=== PATIENT | female | born 1945 | race Caucasian/White ===

== ENCOUNTER 2016-07-25 10:21 | Inpatient (IN) | payer OTHER, MEDICARE ==
[2016-07-25] VITALS (18 sets, daily range): BP systolic 74–204; BP diastolic 50–95; PULSE 74–123; RESP 14–24; TEMP 97.2–99.3; O2SAT 96–100
[~2016-07-25] VITALS: Ht 162.6 cm; Wt 58.0 kg
[~2016-07-25 10:21] MED LIST: ALPR0.25 PO; ASPI81 PO; BENA20TA PO; CALC-187 PO; CHOL1CAP6 PO; CITRTAB8 PO; D32000CA PO; HYDR-3580 PO; HYDR12.56 PO; HYDR25 PO; LEVO25TA36 PO; METO25 PO; OMEG120017 PO; OXYC5 PO; RANI150T PO; SERT-129 PO; SIMV40TA PO; TIZA4 PO; WAL-10TA2 PO
[2016-07-25] MEDS ORDERED: SODIUM CHLOR 0.9% 1000 ML INJ 1,000 ML IV ONE (10:30)
[2016-07-25 10:48] LABS: AUTOMATED NEUTROPHIL # 7.7 TH/MM3 (1.8-7.7); BASOPHIL # 0.1 TH/MM3 (0-0.2); BASOPHIL % 0.5 % (0.0-2.0); EOSINOPHIL # 0.2 TH/MM3 (0-0.4); EOSINOPHIL % 1.6 % (0.0-4.0); HEMATOCRIT 45.9 % (35.0-46.0); HEMO FLAGS DIFF FINAL; LYMPH % 34.2 % (9.0-44.0); LYMPHOCYTE # 4.5 TH/MM3 (1.0-4.8); MEAN CELL VOLUME 95.7 FL (80.0-100.0); MEAN CORPUSCULAR HEMOGLOBIN 32.2 PG (27.0-34.0); MEAN CORPUSCULAR HGB CONC 33.6 % (32.0-36.0); MONO % 5.9 % (0.0-8.0); NEUT % 57.8 % (16.0-70.0); PLATELET COUNT 365 TH/MM3 (150-450); RED CELL DISTRIBUTION WIDTH 13.1 % (11.6-17.2); WHITE BLOOD COUNT 13.3 TH/MM3 (4.0-11.0)
--- NOTE | 2016-07-25 10:50 | PD ---
HPI Chief Complaint: unresponsive, intubated Time Seen by Provider: 10:25 Travel History International Travel<30 days: No Contact w/Intl Traveler<30days: No Traveled to known affect area: No History of Present Illness HPI 71-year-old female came to the emergency room with history of unresponsiveness. called EMS and when they arrived she had a GCS of 3 and they decided to intubate her. As per the telling the EMS about the history patient was fine up until 9 AM this morning. She called him to help her go to the bathroom because she felt her left side go weak. As he assisted her to the bathroom her speech quite garbled. She complained of headache and then she collapsed. EMS after arrival decided to intubate her given her GCS. They also noticed that she had vomited just prior to their arrival. They wanted to protect her airway. Initial blood pressure was more than 200 systolic. Patient obviously was in no condition to give any history. There was no family member present when patient arrived. A stroke alert was called based on EMS. When patient arrived her blood pressure was 155 systolic. Blood sugar was 149. PFSH Past Medical History Narrative Medical List of her past medical, surgical, social and family history was reviewed from the nursing note. Anxiety: Yes Depression: Yes Cardiovascular Problems: Yes (WAS TOLD SHE HAD MITRAL VALVE PROLAPSE BUT STATES THAT CARDIOLOGY SAYS NO.) High Cholesterol: Yes Cerebrovascular Accident: Yes (TIA X 3) Diminished Hearing: No Hypertension: Yes Past Surgical History Abdominal Surgery: Yes (LT INGUINAL HERNIA) Appendectomy: Yes Gynecologic Surgery: Yes (POLYPS RT BREAST X3) Hysterectomy: Yes Other Surgery: Yes (3-BENIGN R BREAST TUMORS REMOVED) Social History Alcohol Use: No Tobacco Use: No Substance Use: No Allergies-Medications (Allergen,Severity, Reaction): Coded Allergies: Adhesives (Verified Allergy, Severe, RASH, 11/17/14) Codeine (Verified Allergy, Severe, ITCHING, 11/17/14) Penicillin (Verified Allergy, Severe, HIVES, 11/17/14) Comments List of her allergies reviewed from the nursing note. Reported Meds & Prescriptions Reported Meds & Active Scripts Active Reported Cholestyramine 4 Gm/Dose Powd 4-8 Gm PO DAILY 1 level scoopful of powder contains 4 grams of cholestyramine. Alprazolam 0.25 Mg Tab 0.25-0.5 Mg PO HS PRN Alprazolam 0.25 Mg Tab 0.25 Mg PO DAILY Levocetirizine 5 Mg Tab 5 Mg PO HS Sertraline (Sertraline HCl) 100 Mg Tab 150 Mg PO DAILY Simvastatin 40 Mg Tab 40 Mg PO HS Vitamin D3 (Cholecalciferol) 5,000 Unit Tab 5,000 Units PO DAILY Zantac (Ranitidine HCl) 150 Mg Tab 150 Mg PO DAILY Citracal + D3 Maximum (Calcium Citrate-Vitamin D) 315-250 Mg-Unit Tab 1 Tab PO DAILY Benazepril (Benazepril HCl) 40 Mg Tab 40 Mg PO DAILY Aspirin Adult Low Strength (Aspirin) 81 Mg Tabdr 81 Mg PO HS Metoprolol Succinate ER 24 HR (Metoprolol Succinate) 50 Mg Tab 50 Mg PO DAILY Tizanidine (Tizanidine HCl) 4 Mg Cap 4 Mg PO BID Narrative Medication List of her home medications reviewed from the nursing note. Review of Systems Except as stated in HPI: all other systems reviewed are Neg Physical Exam Narrative GENERAL: Unresponsive, intubated SKIN: Warm and dry. HEAD: Atraumatic. Normocephalic. EYES: Pupils equal and round, 3 mm and unreactive to light. No scleral icterus. No injection or drainage. ENT: No nasal bleeding or discharge. Mucous membranes pink and moist. NECK: Trachea midline. No JVD. ET tube CARDIOVASCULAR: Regular rate and rhythm. No murmur appreciated. RESPIRATORY: No accessory muscle use. Clear to auscultation. Decreased breath sound on the left side. GASTROINTESTINAL: Abdomen soft, non-tender, nondistended. Hepatic and splenic margins not palpable. MUSCULOSKELETAL: No obvious deformities. No clubbing. No cyanosis. No edema. NEUROLOGICAL: GCS of 3, intubated PSYCHIATRIC: Unable to assess Data Data Last Documented VS Orders Ct Brain W/O Iv Contrast(Rout) (07/25/16 10:28) Diet Npo (07/25/16 Lunch) Activity Bed Rest (07/25/16 ) Electrocardiogram (07/25/16 ) I-Stat Creatinine (07/25/16 10:30) I-Stat Profile (07/25/16 10:30) Prothrombin Time / Inr (Pt) (07/25/16 10:30) Act Partial Throm Time (Ptt) (07/25/16 10:30) Complete Blood Count With Diff (07/25/16 10:30) Fibrinogen (07/25/16 10:30) Creatine Kinase (Cpk) (07/25/16 10:30) Troponin I (07/25/16 10:30) Ua Includes Microscopic (07/25/16 10:30) Drug Screen, Random Urine (07/25/16 10:30) Type And Screen (07/25/16 10:30) Beta Hcg (Quant/Titer) (07/25/16 10:30) Consult Neurology (07/25/16 ) Blood Glucose (07/25/16 10:30) Ecg Monitoring (07/25/16 10:30) Neuro Checks Q2HX12,Q4H (07/25/16 10:30) Nursing Bedside Swallow Assess .ONCE (07/25/16 10:30) Iv Access Insert/Monitor (07/25/16 10:30) NPO (07/25/16 10:30) Oximetry (07/25/16 10:30) Oxygen Administration (07/25/16 10:30) Sodium Chlor 0.9% 1000 Ml Inj (Ns 1000 M (07/25/16 10:30) Resp Oxygen Nolan C Titrat 1-4 L (07/25/16 10:30) Cath For Specimen (07/25/16 10:30) Admit Order (Ed Use Only) (07/25/16 10:41) Labs MDM Medical Decision Making Medical Screen Exam Complete: Yes Emergency Medical Condition: Yes Medical Record Reviewed: Yes Interpretation(s) Twelve-lead EKG was reviewed by me. Normal sinus rhythm, multiple PACs, left axis deviation, LVH. Heart rate of 79 bpm. Differential Diagnosis Intracranial bleed, CVA Narrative Course 10:59 AM patient was emergently taken to the CT scanner. Plain head CT showed large amount of blood intracranially from subarachnoid hemorrhage. I spoke with the neurologist Dr. Haynes since he was initially contacted based on the stroke alert. I let him know about the intracranial bleed. The sample carrier was down in the ER for another patient and I let him know about the patient. He will admit the patient. A call was put out for the neurosurgeon Dr. Garcia. He was in the OR and I spoke with his OR nurse and let him know about patient' s condition and the CT finding. He waited the message to him. Dr. Garcia wanted a CT angiogram of the brain. Patient was also started on a Cardene drip as per the sample carrier. Awaiting for the blood test results and patient to go to the unit. Critical Care Narrative Aggregate critical care time was 30 minutes. Time to perform other separately billable procedures was not included in the critical care time. My time did not include minutes spent treating any other patients simultaneously or on activities that did not directly contribute to the patient's treatment. The services I provided to this patient were to treat and/or prevent clinically significant deterioration that could result in: Subarachnoid bleed, respiratory failure, ventilator management I provided critical care services requiring my management, as noted below: Chart data review, documentation time, medication orders and management, vital sign assessments/reviewing monitor data, ordering and reviewing lab tests, ordering and interpreting/reviewing x-rays and diagnostic studies, care of the patient and discussion of the patient with the admitting physicians. Procedures EKG Prior to Arrival: Yes Physician Communication Physician Communication Dr. Mann, Dr. Haynes, Dr. Garcia Diagnosis Primary Impression: Subarachnoid hemorrhage Additional Impressions: Respiratory failure Qualified Code: J96.90 - Respiratory failure, unspecified chronicity, unspecified whether with hypoxia or hypercapnia Unresponsive Admitting Information Admitting Physician Requests: Admit Lynette Kebede MD Jul 25, 2016 10:50 Bedside Sodium 141 MMOL/L Bedside Potassium 3.2 MMOL/L Bedside Chloride 102 MMOL/L Bedside Blood Urea Nitrogen 15 MG/DL Bedside Creatinine 0.8 MG/DL Bedside Glucose 219 MG/DL Blood Type A POSITIVE Blood Bank Comment [facility] Medical Decision Making Medical Screen Exam Complete: Yes Emergency Medical Condition: Yes Medical Record Reviewed: Yes Interpretation(s) Twelve-lead EKG was reviewed by me. Normal sinus rhythm, multiple PACs, left axis deviation, LVH. Heart rate of 79 bpm. Differential Diagnosis Intracranial bleed, CVA Narrative Course 10:59 AM patient was emergently taken to the CT scanner. Plain head CT showed large amount of blood intracranially from subarachnoid hemorrhage. I spoke with the neurologist Dr. Haynes since he was initially contacted based on the stroke alert. I let him know about the intracranial bleed. The sample carrier was done in the ER for another patient and I let him know about the patient. He will admit the patient. A call was put out for the neurosurgeon Dr. Garcia. He was in the OR and I spoke with his OR nurse and let him know about patient' s condition and the CT finding. He waited the message to him. Dr. Garcia wanted a CT angiogram of the brain. Patient was also started on a Cardene drip as per the sample carrier. Awaiting for the blood test results and patient to go to the unit.. Critical Care Narrative Aggregate critical care time was 30 minutes. Time to perform other separately billable procedures was not included in the critical care time. My time did not include minutes spent treating any other patients simultaneously or on activities that did not directly contribute to the patient's treatment. The services I provided to this patient were to treat and/or prevent clinically significant deterioration that could result in: Subarachnoid bleed, respiratory failure, ventilator management I provided critical care services requiring my management, as noted below: Chart data review, documentation time, medication orders and management, vital sign assessments/reviewing monitor data, ordering and reviewing lab tests, ordering and interpreting/reviewing x-rays and diagnostic studies, care of the patient and discussion of the patient with the admitting physicians. Procedures EKG Prior to Arrival: Yes Physician Communication Physician Communication Dr. Mann, Dr. Haynes, Dr. Garcia Diagnosis Primary Impression: Subarachnoid hemorrhage Additional Impressions: Respiratory failure Qualified Code: J96.90 - Respiratory failure, unspecified chronicity, unspecified whether with hypoxia or hypercapnia Unresponsive Admitting Information Admitting Physician Requests: Admit Lynette Kebede MD Jul 25, 2016 10:50 EKG Prior to Arrival: Yes Physician Communication Physician Communication Dr. Ivy Falk, Dr. Garcia Diagnosis Primary Impression: Subarachnoid hemorrhage Additional Impressions: Respiratory failure Qualified Code: J96.90 - Respiratory failure, unspecified chronicity, unspecified whether with hypoxia or hypercapnia Unresponsive Admitting Information Admitting Physician Requests: it Lynette Kebede MD Jul 25, 2016 10:50
[2016-07-25 10:58] LABS: I-STAT POTASSIUM 3.2 MMOL/L (3.5-4.9); PROTHROMBIN TIME - PATIENT 11.1 SEC (9.8-11.6)
[2016-07-25] MEDS ORDERED: POTASSIUM CHLOR 20 MEQ PREMIX 100 ML IV ONE (11:15)
[2016-07-25] MEDS ORDERED: SODIUM CHLOR 0.9% 1000 ML INJ 1,000 ML IV SCH (11:41)
[2016-07-25 11:42] LABS: BACTERIA, URINE RARE /hpf; BLOOD, URINE MOD (NEG); GLUCOSE,URINE NEG (NEG); GRANULAR CAST, URINE 1 /lpf; KETONE, URINE NEG (NEG); MUCUS URINE FEW /lpf (OCC); NITRITE,URINE NEG (NEG); PH, URINE 6.5 (5.0-8.5); SQUAMOUS EPITHELIAL CELL URINE <1 /hpf (0-5); URINE COLOR YELLOW (YELLW/STRAW)
[2016-07-25] MEDS ORDERED: DEXTROSE 50% IN WATER 50 ML VIAL(D50) IV PUSH PRN (11:45)
[2016-07-25] MEDS ORDERED: MAGNESIUM SULFATE INJ 4 GM in SODIUM CHLORIDE 0.9% INJ 92 ML IV PRN (11:45)
[2016-07-25] MEDS ORDERED: MAGNESIUM SULFATE INJ 2 GM in SODIUM CHLORIDE 0.9% INJ 96 ML IV PRN (11:45)
[2016-07-25] MEDS ORDERED: fentaNYL DRIP 250 ML IV SCH (11:45)
[2016-07-25] MEDS ORDERED: ACETAMINOPHEN 325 MG TAB PO PRN (11:45)
[2016-07-25] MEDS ORDERED: ONDANSETRON HCL 4 MG/2 ML VIAL IV PRN (11:45)
[2016-07-25] MEDS ORDERED: GLUCAGON 1 MG/ML VIAL OTHER PRN (11:45)
[2016-07-25] MEDS ORDERED: POTASSIUM PHOSPHATE INJ 30 MMOL in SODIUM CHLOR 0.9% 250 ML INJ 250 ML IV PRN (11:45)
[2016-07-25] MEDS ORDERED: SODIUM PHOSPHATE INJ 30 MMOL in SODIUM CHLOR 0.9% 250 ML INJ 240 ML IV PRN (11:45)
[2016-07-25] MEDS ORDERED: PROPOFOL 1000 MG/100 ML INJ 100 ML IV SCH (11:45)
[2016-07-25] MEDS ORDERED: MAGNESIUM OXIDE 400 MG TAB PO PRN (11:45)
[2016-07-25] MEDS ORDERED: POTASSIUM PHOSPHATE MONOBASIC 500 MG TAB PO/TUBE PRN (11:45)
[2016-07-25] MEDS ORDERED: SODIUM CHLORIDE 0.9% FLUSH 10 ML FLUSH IV FLUSH PRN (11:45)
[2016-07-25] MEDS ORDERED: RESP: ALBUTEROL 2.5 MG/3 ML NEB (PRN) INH (11:45)
[2016-07-25] MEDS ORDERED: POTASSIUM CHLOR 20 MEQ PREMIX 100 ML IV PRN (11:45)
[2016-07-25] MEDS ORDERED: POTASSIUM PHOSPHATE MONOBASIC 500 MG TAB PO PRN (11:45)
[2016-07-25] MEDS ORDERED: CHLORHEXIDINE GLUCONATE 2 % 1 PACK (2 CLOTHS) TOP PRN (11:45)
[2016-07-25] MEDS ORDERED: MISCELLANEOUS NURSING INFORMATION XX SCH (11:45)
[2016-07-25] MEDS ORDERED: SENNOSIDES 8.6 MG TAB PO PRN (11:45)
[2016-07-25] MEDS ORDERED: POTASSIUM CHLOR 40 MEQ PREMIX 100 ML IV PRN ×2 (11:45)
[2016-07-25 11:49] LABS: AMPHETAMINE, URINE NEG (NEG); BARBITURATES, URINE NEG (NEG); COCAINE, URINE NEG (NEG)
--- NOTE | 2016-07-25 11:49 | RADRPT ---
EXAM DATE/TIME: 07/25/2016 10:25 [facility] COMPARISON: No previous studies available for comparison. INDICATIONS : Stroke alert, unresponsive. RADIATION DOSE: 56.35 CTDIvol (mGy) This report was called by Dr. Pierce to Dr. Kebede at 10: 36 MEDICAL HISTORY : Non-responsive. SURGICAL HISTORY : Non-responsive. ENCOUNTER: Initial ACUITY: 1 day PAIN SCALE: Non-responsive LOCATION: cranial TECHNIQUE: Multiple contiguous axial images were obtained of the head. Using automated exposure control and adj ustment of the mA and/or kV according to patient size, radiation dose was kept as low as reasonably a chievable to obtain optimal diagnostic quality images. FINDINGS: There is diffuse subarachnoid blood present throughout the paramesencephalic cisterns, the sylvian fi ssures bilaterally and the interhemispheric fissure and extending to some degree over the convexities . Minimal layering blood is present in the right lateral ventricle and blood is present in the third and fourth ventricles. There is also hemorrhage within the upper cervical spinal canal. There are small old lacunar infarcts present in the right lentiform nucleus. There is no definite manpreet dence of parenchymal mass. No brain shift is identified at present. The extracranial structures are benign and intact. CONCLUSION: Extensive subarachnoid hemorrhage Franklin Pierce MD on July 25, 2016 at 11:45 Board Certified Radiologist. This report was verified electronically.
--- NOTE | 2016-07-25 11:53 | HHI.HP ---
[facility] Service Critical Care Medicine Primary Care Physician Evangelina Matt Do, MD Admission Diagnosis intracranial bleed, respiratory failure Diagnosis: (1) Subarachnoid hemorrhage Diagnosis: Principal (2) Respiratory failure Diagnosis: Principal (3) Unresponsive Diagnosis: Principal (4) Leukocytosis Diagnosis: Principal (5) Hypokalemia Diagnosis: Principal (6) Hyperglycemia Diagnosis: Principal (7) Headache Diagnosis: Principal (8) Depression Diagnosis: Principal (9) Protrusion of lumbar intervertebral disc Diagnosis: Principal (10) Gastroesophageal reflux disease Diagnosis: Principal (11) Chronically on benzodiazepine therapy Diagnosis: Secondary (12) Hypertension Diagnosis: Principal (13) Hyperlipidemia Diagnosis: Principal (14) Hypothyroidism Diagnosis: Principal Chief Complaint: Found unresponsive with subarachnoid hemorrhage Travel History International Travel<30 Days: No Contact w/Intl Traveler <30 Da: No Traveled to Known Affected Are: No History of Present Illness 71-year-old female. Date of admission 07/25/2016. Past medical history includes depression/anxiety. History of TIA 3, hypertension, dyslipidemia, gastroesophageal reflux disease, hypothyroidism, chronic lumbar back pain history of epidural steroid injections, ongoing tobaccoism, chronic benzodiazepine and narcotic use. Patient was in her normal state of health today when approximately 9 AM patient was in bathroom and complained of "worst headache" experience left sided weakness. attempted to raise patient unsuccessfully. EMS was activated. When EMS arrived patient unresponsive with a GCS around 3 and was emergently intubated in the field. Patient was noted to be hypertensive. Transferred to [facility]. CT head - diffuse subarachnoid hemorrhage involving the perimesencephalic cisterns, bilateral sylvian fissures with extension to the intravenous hemispheric fissures throughout convexities. Intraventricular hemorrhage Right lateral ventricle and third and fourth ventricles. 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 Blood also extends into the upper cervical canal.. Patient had leukocytosis of 13,000. Potassium 3.2. Blood sugars 219. Patient started on a Cardene drip to maintain systolic pressure less than 160. Dr. Garcia neurosurgery was notified and requested CTA head. This is currently pending. is at bedside Review of Systems ROS Limitations: Intubated Past Family Social History Allergies: Coded Allergies: Adhesives (Verified Allergy, Severe, RASH, 11/17/14) Codeine (Verified Allergy, Severe, ITCHING, 11/17/14) Penicillin (Verified Allergy, Severe, HIVES, 7/16/15) Past Medical History Depression Anxiety TIA 3 Hypertension Dyslipidemia Gastroesophageal reflux disease Hypothyroidism Chronic low back pain Chronic benzodiazepine use Chronic narcotic use Tobaccoism Past Surgical History ELENA Appendectomy Right breast tumor removal 3 Right partial knee prosthesis Left inguinal hernia Right knee, elbow, wrist, index finger Left wrist History of LUCIEN lumbar Reported Medications Fish oil 1200 mg by mouth daily Loratadine 10 mg by mouth daily Benazepril 20 mg by mouth daily Sertraline 100 mg by mouth daily Atarax 100 mg daily at bedtime Xanax 0.25 mg by mouth 3 times a day when necessary Metoprolol 25 mg by mouth daily Zanaflex 4 mg every 8 hours when necessary simvastatin 40 mg by mouth daily Zantac 150 mg by mouth twice a day Active Ordered Medications Reviewed in EMR Family History Father age 88 of heart disease. Mother 93 of old age. Social History One half pack per day tobacco 30 years. Currently on E cigarettes. No EtOH or IV drug use. Physical Exam Vital Signs Vital Signs Date Time Temp Pulse Resp B/P Pulse Ox O2 Delivery O2 Flow Rate FiO2 07/25/16 11:30 79 14 154/67 100 Ventilator 100 07/25/16 10:59 97 100 07/25/16 10:30 85 14 137/84 100 Ventilator 100 07/25/16 10:22 100 Ventilator 100 07/25/16 10:22 97.6 84 14 204/95 100 07/25/16 10:22 74 14 100 Ventilator 100 07/25/16 10:22 97.2 84 14 204/95 100 Ventilator 100 07/25/16 10:22 100 Ventilator 100 Physical Exam GENERAL: 71-year-old female, critically ill currently orotracheally intubated SKIN: Warm and dry. Small abrasion/ecchymosis to the left upper extremity HEAD: Atraumatic. Normocephalic. EYES: Pupils equal and round about 3 mm bilaterally and fixed. No scleral icterus. No injection or drainage. ENT: No nasal bleeding or discharge. Mucous membranes pink and moist. Orotracheally intubated NECK: Trachea midline. No JVD. CARDIOVASCULAR: Regular rate and rhythm. S1, S2 no S4. The 2/6 murmur left sternal border RESPIRATORY: Clear to auscultation bilaterally without wheezes rales or rhonchi. Breath sounds equal bilaterally. GASTROINTESTINAL: Abdomen soft, non-tender, nondistended. Hepatic and splenic margins not palpable. MUSCULOSKELETAL: Extremities without significant peripheral edema. No obvious deformities. NEUROLOGICAL: Unresponsive on the ventilator. No corneal reflex. No gag. Positive clonus bilateral lower extremities. Negative Babinski. Laboratory Laboratory Tests Test 07/25/16 10:30 White Blood Count 13.3 Red Blood Count 4.80 Hemoglobin 15.4 Bedside Hemoglobin 16.0 Hematocrit 45.9 Bedside Hematocrit 47.0 Mean Corpuscular Volume 95.7 Mean Corpuscular Hemoglobin 32.2 Mean Corpuscular Hemoglobin 33.6 Concent Red Cell Distribution Width 13.1 Platelet Count 365 Mean Platelet Volume 8.1 Neutrophils (%) (Auto) 57.8 Lymphocytes (%) (Auto) 34.2 Monocytes (%) (Auto) 5.9 Eosinophils (%) (Auto) 1.6 Basophils (%) (Auto) 0.5 Neutrophils # (Auto) 7.7 Lymphocytes # (Auto) 4.5 Monocytes # (Auto) 0.8 Eosinophils # (Auto) 0.2 Basophils # (Auto) 0.1 CBC Comment DIFF FINAL Differential Comment Prothrombin Time 11.1 Prothromb Time International 1.0 Ratio Activated Partial 25.0 Thromboplast Time Fibrinogen 408 Bedside Sodium 141 Bedside Potassium 3.2 Bedside Chloride 102 Bedside Blood Urea Nitrogen 15 Bedside Creatinine 0.8 Bedside Glucose 219 Total Creatine Kinase 73 Troponin I 0.03 Human Chorionic Gonadotropin, 4 Quant Blood Type A POSITIVE Blood Bank Comment Result Diagram: 07/25/16 1030 Imaging Subarachnoid hemorrhage Assessment and Plan Assessment and Plan Neuro/Psych: Subarachnoid hemorrhage 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 There is also blood in the upper cervical canal. Small old right lenticular body CVA CTA head revealed 6 x 4 mm posterior ICA aneurysm. Neurosurgery consult recommended DNR status. *Nimodipine 60 mg by mouth every 4 hours for nontraumatic subarachnoid hemorrhage Cardene keep systolic blood pressure less than 160 Hypertonic saline goal keep sodium around 1 5155 Serial serum osm Maintain end tidal CO2 between 30 and 35 Seizure prophylaxis and 7 days with Keppra 500 mg IV twice a day Patient is on sertraline 150 mg by mouth at night for depression. Patient is on Xanax 0.25 mill grams by mouth 3 times a day for anxiety at home. Patient takes Gates and Zanaflex for pain management at home. This currently on hold Patient is on loratadine 10 mg by mouth daily for allergic rhinitis. This is on hold. CV: Hypertension Dyslipidemia History mitral valve prolapse? Goal maintain systolic blood pressure less than 160/MAP around 80 Initiated Ivelisse velasquez ED. Utilize vasopressors if needed for cold therapy Patient is on benazepril 40 mg daily, HCTZ 12.5 mg by mouth twice a day, metoprolol 25 mg by mouth daily at home for hypertension. Patient is on simvastatin 40 mg by mouth daily and fish oil 1200 mg by mouth daily for dyslipidemia. This is on hold. Resume when clinically indicated Resp: Acute respiratory failure Tobaccoism PRVC ventilation Bronchodilator therapy every 6 hours and as needed Ventilator bundle Maintain end tidal CO2 between 30 and 35 GI: Gastroesophageal reflux disease OGT to LIWS Protonix for GI prophylaxis. On Zantac 150 by mouth twice a day at home. As needed Senokot for bowel regimen : Petty will be placed for accurate I's and O's in a critically ill patient Endo: Hypothyroidism Hyperglycemia of critical illness Continue Levoxyl 25 g by mouth daily. Sliding-scale insulin with Accu-Cheks to maintain euglycemia/low regimen Renal: Monitor urine output closely Accurate I's and O's Heme: Leukocytosis Chronic baby aspirin use Coags within normal limits. Monitor CBC/CMP daily. Follow trends ID: Monitor for infection MSK: Lumbar L4 through S1 disc protrusion status post LUCIEN Holding calcium and vitamin D 3 Daily currently. Resume as clinically indicated PT evaluate and treat FEN: Hypokalemia Replace per ICU electrolyte protocol. See orders. Access - Utilize peripheral IV. We will place central line for hypertonic saline Prophylaxis - GI - Protonix - DVT - SCD/pharmacological prophylaxis when okayed with neurosurgery Critical Care: The total critical care time was 75 minutes. Time to perform other separately billable procedures was not included in the critical care time. Patient's physical examination closed consistent with brain . Dr. Garcia recommends observation for 24 hours. agreeable. DNR status due to living will and active. Possible withdrawal of care in a.m. Code Status Now DNR. Likely withdraw care in a.m. Discussed Condition With Dr. Kebede/ED physician. Patient's . Care plan discussed and all questions answered Problem Qualifiers (1) Respiratory failure: Qualified Code: J96.90 - Respiratory failure, unspecified chronicity, unspecified whether with hypoxia or hypercapnia (2) Leukocytosis: Qualified Code: D72.829 - Leukocytosis, unspecified type (3) Headache: Qualified Code: R51 - Acute intractable headache, unspecified headache type (4) Depression: Qualified Code: F32.9 - Depression, unspecified depression type (5) Gastroesophageal reflux disease: Qualified Code: K21.9 - Gastroesophageal reflux disease, esophagitis presence not specified (6) Hypertension: Qualified Code: I10 - Essential hypertension (7) Hyperlipidemia: Qualified Code: E78.5 - Hyperlipidemia, unspecified hyperlipidemia type (8) Hypothyroidism: Qualified Code: E03.9 - Hypothyroidism, unspecified type Geovany Sorto MD Jul 25, 2016 11:53
[2016-07-25] MEDS ORDERED: ALPR0.25 PO ×2 (11:56)
[2016-07-25] MEDS ORDERED: CHOL50008 PO (11:56)
[2016-07-25] MEDS ORDERED: SIMV40TA PO (11:56)
[2016-07-25] MEDS ORDERED: ASPI1TAB91 PO (11:56)
[2016-07-25] MEDS ORDERED: TIZA4CAP3 PO (11:56)
[2016-07-25] MEDS ORDERED: METO50TA11 PO (11:56)
[2016-07-25] MEDS ORDERED: CITRTAB7 PO (11:56)
[2016-07-25] MEDS ORDERED: BENA40TA PO (11:56)
[2016-07-25] MEDS ORDERED: ZANT150T2 PO (11:56)
[2016-07-25] MEDS ORDERED: SERT-129 PO (11:56)
[2016-07-25] MEDS ORDERED: LEVOTAB PO (11:56)
[2016-07-25] MEDS ORDERED: CHOL4POW3 PO (11:56)
[2016-07-25] MEDS ORDERED: IOHEXOL 350 MG/ML 10 ML VIAL (for RAD DIAG) IV ONE (12:18)
--- NOTE | 2016-07-25 12:18 | RADRPT ---
EXAM DATE/TIME: 07/25/2016 11:24 [facility] COMPARISON: CHEST SINGLE AP, May 26, 2014, 1:01. INDICATIONS : Intubation and OG tube placement. MEDICAL HISTORY : Unobtainable. SURGICAL HISTORY : Unobtainable. ENCOUNTER: Initial ACUITY: 1 day PAIN SCORE: Non-responsive. LOCATION: Bilateral chest FINDINGS: A single view of the chest demonstrates increased interstitial markings predominantly in the right ap ex which may be chronic representing some pleural parenchymal scarring and fibrosis. There also bibas ilar atelectatic changes. An orogastric tube is identified and is coiled in the gastric fundus. Endot shannon tube is also seen with the tip approximately 1.8 cm above the guido. Granulomatous type calc ification in the right hilar region. CONCLUSION: 1. Increased interstitial changes with apical capping on the right is probably chronic possibly repre sents some fibrosis/scarring. 2. However, there are bibasilar atelectatic changes. 3. No granulomatous disease. 4. Endotracheal tube with the tip 1.8 cm above the guido. Orogastric tube curled in the gastric fund us. . Chris Guy MD on July 25, 2016 at 12:14 Board Certified Radiologist. This report was verified electronically.
[2016-07-25] MEDS ORDERED: 3% SALINE INJ 500 ML IV SCH (12:30)
[2016-07-25] MEDS ORDERED: niCARdipine INJ 25 MG in SODIUM CHLOR 0.9% 250 ML INJ 250 ML IV SCH (12:30)
--- NOTE | 2016-07-25 12:58 | PD.PROCEDR ---
Central Line Procedure REASON FOR PROCEDURE Central venous access PROCEDURE PERFORMED Central line placement: L IJ CONSENT Informed consent for procedure was obtained. The risks and benefits of the procedure were discussed to include but limited to bleeding, clot formation, infection, and even . ANESTHESIA Local injection of 1% Lidocaine DESCRIPTION OF THE PROCEDURE The patient was placed in supine, mild Trendelenburg position. The area was exposed and cleansed with ChloraPrep, times two. Large sterile drape was used to cover the patient, with the site exposed, under sterile conditions including cap, face mask, sterile gown, and sterile gloves. On single attempt, the introducer needle was inserted with negative pressure in syringe and venous flash was obtained. The guide wire was then advanced without any restriction and the needle was removed. The dilator was used without any complications. Using Seldinger technique the abx coated triple lumen catheter was advanced over the guide wire to a depth of 20 centimeters. The guide wire was removed. All ports were aspirated with dark venous blood return and flushed easily with sterile saline. All ports were capped. Antibiotic disc was placed around central line at puncture site. The central line was secured to the skin with two interrupted 2.0 silk sutures. The area was bandaged with sterile see- through central line bandage. RADIOLOGICAL DATA Ultrasound guidance was used to locate the left IJ. Doppler/color flow was used to confirm venous flow. COMPLICATIONS: No apparent complications ESTIMATED BLOOD LOSS: Less than 1 cc. Geovany Sorto MD Jul 25, 2016 12:58
[2016-07-25] MEDS ORDERED: SODIUM CHLORIDE 0.9% FLUSH 10 ML FLUSH IVF PRN (13:00)
[2016-07-25] MEDS: RESP: ALBUTEROL 2.5 MG/IPRATROPIUM 0.5 MG NEB (SCH) INH ×3 (13:17→20:39)
--- NOTE | 2016-07-25 13:19 | RADRPT ---
EXAM DATE/TIME: 07/25/2016 11:59 [facility] COMPARISON: CT BRAIN W/O CONTRAST, July 25, 2016, 10:25. INDICATIONS : Stroke Alert; intracranial bleed, evaluate for aneurysm. IV CONTRAST: 73 cc Omnipaque 350 (iohexol) IV ; Cumulative dose for multiple exams. RADIATION DOSE: 26.38 CTDIvol (mGy) ; Combined studies MEDICAL HISTORY : Hypertension. Cardiovascular disease SURGICAL HISTORY : Non-responsive. ENCOUNTER: Initial ACUITY: 1 day PAIN SCALE: 0/10 LOCATION: cranial TECHNIQUE: Volumetric scanning was performed using a multi-row detector CT scanner. The data was post processed with a variety of visualization algorithms including full volume maximum intensity projection, multi -planar sliding thin slab reformation, curved planar reformation, and surface rendering techniques. Using automated exposure control and adjustment of the mA and/or kV according to patient size, radiat ion dose was kept as low as reasonably achievable to obtain optimal diagnostic quality images. FINDINGS: A saccular aneurysm protrudes from the proximal aspect of the left PICA extending almost directly cep halad from the parent vessel. A thin, discrete neck is present at the base of a 6 x 4 mm ovoid aneury sm. There are no other aneurysms identified. The contralateral right PICA is specifically normal in a ppearance. Incidental note is made of origin of the left posterior cerebral artery. There is mi ld atherosclerotic involvement of the carotids, however no evidence of major vessel occlusion or sign ificant stenosis. CONCLUSION: 6 mm left PICA aneurysm. The lesion does appear amenable to coil embolization. Franklin Pierce MD on July 25, 2016 at 13:07 Board Certified Radiologist. This report was verified electronically.
--- NOTE | 2016-07-25 13:40 | RADRPT ---
EXAM DATE/TIME: 07/25/2016 11:59 [facility] COMPARISON: No previous studies available for comparison. INDICATIONS : Stroke alert; intracranial bleed, evaluate for aneurysm. IV CONTRAST: 73 cc Omnipaque 350 (iohexol) IV ; Cumulative dose for multiple exams. RADIATION DOSE: 26.38 CTDIvol (mGy) ; Combined studies MEDICAL HISTORY : Cardiovascular disease. Hypertension. SURGICAL HISTORY : Non-responsive. ENCOUNTER: Initial ACUITY: 1 day PAIN SCALE: Non-responsive LOCATION: neck Elevated flow velocities and ICA/CCA ratios have been found to correlate with increased degrees of vessel stenosis, calculated as percentage of diameter relative to a normal segment of distal ICA/CCA. TECHNIQUE: Volumetric scanning was performed using a multirow detector CT scanner. The data was post processed with a variety of visualization algorithms including full-volume maximum intensity projection, multip lanar sliding thin-slab reformation, curved-planar reformation, and surface-rendering techniques. Us ing automated exposure control and adjustment of the mA and/or kV according to patient size, radiatio n dose was kept as low as reasonably achievable to obtain optimal diagnostic quality images. FINDINGS: In the lung apices, nodular densities are present bilaterally. The endotracheal tube tip extends into the origin of the right mainstem bronchus. AORTIC ARCH: There is a three-vessel origin of the great vessels from the aorta. No evidence of ostial narrowing. Mild eccentric disease present in the proximal left subclavian, non flow-limiting. RIGHT CAROTID: Mild eccentric calcific plaquing involving the proximal right ICA a couple of centimeters above the c arotid bifurcation with perhaps 30% focal stenotic narrowing. LEFT CAROTID: Mild calcific plaquing at the left ICA origin without significant associated stenotic narrowing. VERTEBRALS: The vertebral arteries have a symmetric diameter. No stenotic lesions are seen. CONCLUSION: No significant carotid stenosis. Apical lung densities bilaterally. Endotracheal tube is a bit low with the tip extending into the origin of the right mainstem bronchus. Franklin Pierce MD on July 25, 2016 at 13:34 Board Certified Radiologist. This report was verified electronically.
[2016-07-25 13:46] LABS: BLOOD GAS BASE EXCESS -6.1 mmol/L (-2-2); BLOOD GAS CARBOXYHEMOGLOBIN 0.9 % (0-4); BLOOD GAS HCO3 18 mmol/L (22-26); BLOOD GAS METHEMOGLOBIN 0.9 % (0-2); BLOOD GAS O2 HGB SATURATION 97 % (90-100); BLOOD GAS OXYGEN CONTENT 21.7 Vol % (12.0-20.0); BLOOD GAS PCO2 33 mmHg (38-42); BLOOD GAS PO2 187 mmHg (61-120); BLOOD GAS TOTAL HGB 15.6 G/DL (12.0-16.0); CRITICAL VALUE NO; DRAW SITE RT RADIAL; FIO2 50 %; OXYGEN DEVICE VENTILATOR; TEMP CORR TO 98.6; VENT SETTINGS AC/18/500/PEEP5
[2016-07-25 13:47] LABS: NUMBER OF ARTERIAL PUNCTURES 1; STAT NO; ULNAR PULSE PRESENT
--- NOTE | 2016-07-25 13:47 | RADRPT ---
EXAM DATE/TIME: 07/25/2016 13:03 [facility] COMPARISON: No previous studies available for comparison. INDICATIONS : Central line placement. MEDICAL HISTORY : Hypertension. Cardiovascular disease SURGICAL HISTORY : Non-responsive. ENCOUNTER: Initial ACUITY: 1 day PAIN SCORE: Non-responsive. LOCATION: Bilateral chest FINDINGS: Left neck central line is present good position with tip extending to SVC. There is no evidence of pn eumothorax. Endotracheal tube tip is a bit low extending in the origin of the right mainstem bronchus . Nasogastric tube descends into the stomach. Biapical lung densities are noted. There is diffuse fin e interstitial prominence, mainly in the right lung. Cardiomediastinal contours are grossly satisfact ory. CONCLUSION: Central line in good position. No pneumothorax. Endotracheal tube tip is a bit low. Apical lung densities and diffuse right lung interstitial infiltrate. Franklin Pierce MD on July 25, 2016 at 13:43 Board Certified Radiologist. This report was verified electronically.
[2016-07-25] MEDS: POTASSIUM CHLOR 20 MEQ PREMIX 100 ML IV PRN ×3 (14:15→16:48)
[2016-07-25] MEDS: ARTIFICIAL TEARS OPTH SOLN 15 ML BTL EACH EYE SCH ×2 (14:17→18:08)
[2016-07-25] MEDS: INSULIN NovoLIN REGULAR SUPPLEMENTAL SCALE SQ SCH ×2 (14:18→18:00)
[2016-07-25] MEDS: niMODipine 30 MG CAP PO SCH ×2 (15:24→20:05)
[2016-07-25] MEDS: LABETALOL HCL 100 MG/20 ML VIAL IV PUSH PRN ×3 (15:54→22:15)
--- NOTE | 2016-07-25 17:34 | MB ---
cc: DO DANIEL ABDUL ROHIT DATE OF CONSULTATION 07/25/16 REASON FOR CONSULTATION Subarachnoid hemorrhage. HISTORY OF PRESENT ILLNESS A 71-year-old female who was found unresponsive at home. Apparently, shortly after she woke up she complained of a severe headache and then subsequently became unresponsive. EMS intubated the patient for airway control and she was brought to [facility] for further evaluation. Initially, she was very hypertensive with systolic blood pressure 204. She was placed on a Cardene drip and CT scan of the head obtained reveals diffuse subarachnoid hemorrhage involving the basal cisterns, perimedullary cistern, the prepontine and suprasellar systems, bilateral sylvian fissure, interhemispheric fissure. There is also hemorrhage in the fourth and third ventricle. Mild hydrocephalus. Subsequent CT angiogram has also been obtained which confirms a left PICA 6-mm aneurysm. PAST MEDICAL HISTORY 1. Hypertension, 2. Transient ischemic attacks, 3. Hyperlipidemia, 4. Anxiety, depression, 5. Gastroesophageal reflux, 6. Hypothyroidism, 7. Chronic low back pain. 8. Narcotic and benzodiazepine use, 9. Right prosthetic knee, 10. Breast mass resection x3. MEDICATIONS 1. Fish oral. 2. Loratadine. 3. Benazepril. 4. Sertraline, 5. Atarax. 6. Xanax. 7. Metoprolol. 8. Zanaflex. 9. Simvastatin. 10. Zantac. ALLERGIES CODEINE PENICILLIN ADHESIVES SOCIAL HISTORY She is and her is here with her. He does relate that she smokes and drinks alcohol on occasional basis. REVIEW OF SYSTEMS Unobtainable. The patient is comatose. LABORATORY FINDINGS White blood cell count 13.3, hemoglobin 15.4, platelet count 365, PT 11.1, INR 1.0, PTT 25, fibrinogen 408. Sodium 141, potassium 3.2, BUN 15, creatinine 0.8, glucose 219. PHYSICAL EXAMINATION VITAL SIGNS: Temperature 97.6, pulse is 84, respiratory rate 14, blood pressure 123/55, oxygen saturations 98% on 50% FIO2 HEAD: No Walker's or raccoon's sign. NECK: Supple. CHEST: Clear bilaterally HEART: Regular rate rhythm, normal S1, S2. ABDOMEN: Soft, nontender. EXTREMITIES: No cyanosis, edema or deformity. NEUROLOGIC: She does not open her eyes to painful stimulation. She has not received any sedation. Pupils are 2 mm and nonreactive. There is negative corneal negative doll's reflex. She does have a weak cough reflex, although no gag reflex. There is no motor response to central painful stimulation. She does take one or two breaths over the ventilator. IMPRESSION 1. 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 Ahrt/Badillo grade 5 with Roodhouse coma score of three and loss of majority of brainstem reflexes. 2. Unregulated hypertension 3. Respiratory failure secondary to above PLAN I had a lengthy discussion with the patient's regarding the poor neurologic examination. I did offer placement of a ventriculostomy and if there was any subsequent improvement in neurologic status then consider endovascular coiling of the cerebral aneurysm. They inform me the patient has a living will and, given the gravity of her overall condition and prognosis, they would want to honor that and not pursue any heroic measures or aggressive management and would like to consider withdrawal of supportive care as per her previously expressed wishes once the family members have arrived. Accordingly, we will honor their wishes and continue with supportive care and ventilator management until he elects to withdraw. He also wants to make her DNR with no chest compressions or defibrillations in case of a cardiac arrest. Conversation was undertaken, witnessed by the intensive care unit nurse, Arleth, and also discussed with Dr. oSrto, the special diet cook. MD ORLIN Reeves/ /2:01 PM /5:14 PM
--- NOTE | 2016-07-25 19:59 | EKG ---
Date Performed: 07/25/2016 Time Performed: 10:49:15 PTAGE: 71 years EKG: Sinus rhythm WITH FREQUENT SUPRAVENTRICULAR PREMATURE COMPLEXES MARKED LEFT AXIS DEVIATION POSSIBLE RIGHT VENTRIC ULAR CONDUCTION DELAY NONSPECIFIC ST & T-WAVE ABNORMALITY When compared to previous tracing, frequent premature Atrial contractions are new. ST changes are also more prominant, consider ischemia. ABNORM AL ECG PREVIOUS TRACING : 05/26/2014 06.30 DOCTOR: Justin Yee Interpretating Date/Time 07/25/2016 19:58:25
[2016-07-25] MEDS ORDERED: levETIRAcetam INJ 500 MG in SODIUM CHLORIDE 0.9% INJ 100 ML IV SCH (21:00)
[2016-07-25] MEDS ORDERED: SODIUM CHLORIDE 0.9% FLUSH 10 ML FLUSH IV FLUSH SCH (21:00)
[2016-07-25] MEDS ORDERED: DOCUSATE SODIUM 100 MG CAP PO SCH (21:00)
[2016-07-26] MEDS ORDERED: CHLORHEXIDINE GLUCONATE 2 % 1 PACK (2 CLOTHS) TOP SCH (04:00)
[2016-07-26] MEDS ORDERED: PANTOPRAZOLE SODIUM 40 MG VIAL IV SCH (09:00)
[2016-07-26] MEDS ORDERED: SODIUM CHLORIDE 0.9% FLUSH 10 ML FLUSH IVF SCH (09:00)
--- NOTE | 2016-07-26 09:26 | MB ---
cc: ZORA COPPOLA MD DATE OF CONSULTATION 07/25/2016 REASON FOR CONSULTATION Stroke with subarachnoid hemorrhage HISTORY OF PRESENT ILLNESS Ms. Alves is a 71-year-old female who was vent intubated during the encounter, hence the medical information is obtained from the nurse and from the medical records. The patient arrived to the emergency room in an unresponsive status, called EMS and when EMS arrived, GCS 3. She was intubated. He noticed before this incident that she had garbled speech and she was very weak and complained of headache and then collapsed. Initial blood pressure was greater than 200 systolic. A stroke alert was called. When the patient arrived, blood pressure was 155 and blood sugar was 49. A CT scan without contrast revealed extensive subarachnoid hemorrhage. The patient was admitted to the ICU for subsequent CT angiogram that confirmed a left PICA 6-mm aneurysm. REVIEW OF SYSTEMS Unable to obtain. PAST MEDICAL HISTORY Unable to obtain, but according to medical records: 1. Hypertension 2. TIA 3. Hyperlipidemia 4. Anxiety depression 5. Gastroesophageal reflux disease 6. Hypothyroidism 7. Chronic low back pain 8. Narcotic and benzo use 9. Breast mass resection 10. Right prosthetic knee, ALLERGIES Unable to obtain. According to medical records, CODEINE, PENICILLIN AND ADHESIVES. SOCIAL HISTORY , lives with her . LABORATORY DATA White blood cell 13.3, hemoglobin 15.4, platelet 365, INR 1, PTT 25, RBC 4.8. Sodium 143, potassium 3.2, BUN 15, creatinine 0.8, glucose 219. PHYSICAL EXAMINATION GENERAL: Vented sedated. HEENT: Atraumatic, normocephalic. CHEST: Clear bilaterally. No wheezes. HEART: Regular rate and rhythm. EXTREMITIES: No cyanosis, edema or deformity. NEUROLOGIC: Vented sedated. Pupils are 2 mm bilateral not reacting to light. Plantar's are bilaterally mute. Negative corneal and cough reflex and no bladder reflex. IMPRESSION 1. Subarachnoid hemorrhage status ruptured left PICA aneurysm 2. Hypertension 3. Respiratory failure PLAN 1. Neuro checks q. one hourly. 2. The patient was seen by neurosurgery. declined any intervention. The patient has a Living Will. 3. Continue supportive care. 4. The wants to make her DNR. 5. Call for any questions. Thank you for the opportunity to participate in the care of your patient. MD RAMYA Leal/DJL /11:42 PM /9:08 AM [facility]
--- NOTE | 2016-09-04 06:15 | HHI.DS ---
Summary Note Date of : Jul 25, 2016 Time Of : 2249 Admission Date Jul 25, 2016 at 10:42 Admitting Diagnosis intracranial bleed, respiratory failure Diagnosis at Time of : (1) Subarachnoid hemorrhage ICD Code: I60.9 Diagnosis: Principal (2) Respiratory failure ICD Code: J96.90 Diagnosis: Principal (3) Unresponsive ICD Code: R41.89 Diagnosis: Principal (4) Leukocytosis ICD Code: D72.829 Diagnosis: Principal (5) Hypokalemia ICD Code: E87.6 Diagnosis: Principal (6) Hyperglycemia ICD Code: R73.9 Diagnosis: Principal (7) Headache ICD Code: R51 Diagnosis: Principal (8) Depression ICD Code: F32.9 Diagnosis: Principal (9) Protrusion of lumbar intervertebral disc ICD Code: M51.26 Diagnosis: Principal (10) Gastroesophageal reflux disease ICD Code: K21.9 Diagnosis: Principal (11) Chronically on benzodiazepine therapy ICD Code: Z79.899 Diagnosis: Secondary (12) Hypertension ICD Code: I10 Diagnosis: Principal (13) Hyperlipidemia ICD Code: E78.5 Diagnosis: Principal (14) Hypothyroidism ICD Code: E03.9 Diagnosis: Principal Procedures Central line Brief History 71-year-old female. Date of admission 07/25/2016. Past medical history includes depression/anxiety. History of TIA 3, hypertension, dyslipidemia, gastroesophageal reflux disease, hypothyroidism, chronic lumbar back pain history of epidural steroid injections, ongoing tobaccoism, chronic benzodiazepine and narcotic use. Patient was in her normal state of health today when approximately 9 AM patient was in bathroom and complained of "worst headache" experience left sided weakness. attempted to raise patient unsuccessfully. EMS was activated. When EMS arrived patient unresponsive with a GCS around 3 and was emergently intubated in the field. Patient was noted to be hypertensive. Transferred to [facility]. CT head - diffuse subarachnoid hemorrhage involving the perimesencephalic cisterns, bilateral sylvian fissures with extension to the intravenous hemispheric fissures throughout convexities. Intraventricular hemorrhage Right lateral ventricle and third and fourth ventricles. 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 Blood also extends into the upper cervical canal.. Patient had leukocytosis of 13,000. Potassium 3.2. Blood sugars 219. Patient started on a Cardene drip to maintain systolic pressure less than 160. Dr. Garcia neurosurgery was notified and requested CTA head. This is currently pending. is at bedside Significant Findings Subarachnoid hemorrhage Imaging Subarachnoid hemorrhage Hospital Course Neuro/Psych: Subarachnoid hemorrhage 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 There is also blood in the upper cervical canal. Small old right lenticular body CVA CTA head revealed 6 x 4 mm posterior ICA aneurysm. Neurosurgery consult recommended DNR status. *Nimodipine 60 mg by mouth every 4 hours for nontraumatic subarachnoid hemorrhage Cardene keep systolic blood pressure less than 160 Hypertonic saline goal keep sodium around 1 5155 Serial serum osm Maintain end tidal CO2 between 30 and 35 Seizure prophylaxis and 7 days with Keppra 500 mg IV twice a day Patient is on sertraline 150 mg by mouth at night for depression. Patient is on Xanax 0.25 mill grams by mouth 3 times a day for anxiety at home. Patient takes [place] and Zanaflex for pain management at home. This currently on hold Patient is on loratadine 10 mg by mouth daily for allergic rhinitis. This is on hold. CV: Hypertension Dyslipidemia History mitral valve prolapse? Goal maintain systolic blood pressure less than 160/MAP around 80 Initiated Cardene drip ED. Utilize vasopressors if needed for cold therapy Patient is on benazepril 40 mg daily, HCTZ 12.5 mg by mouth twice a day, metoprolol 25 mg by mouth daily at home for hypertension. Patient is on simvastatin 40 mg by mouth daily and fish oil 1200 mg by mouth daily for dyslipidemia. This is on hold. Resume when clinically indicated Resp: Acute respiratory failure Tobaccoism PRVC ventilation Bronchodilator therapy every 6 hours and as needed Ventilator bundle Maintain end tidal CO2 between 30 and 35 GI: Gastroesophageal reflux disease OGT to LIWS Protonix for GI prophylaxis. On Zantac 150 by mouth twice a day at home. As needed Senokot for bowel regimen : Petty will be placed for accurate I's and O's in a critically ill patient Endo: Hypothyroidism Hyperglycemia of critical illness Continue Levoxyl 25 g by mouth daily. Sliding-scale insulin with Accu-Cheks to maintain euglycemia/low regimen Renal: Monitor urine output closely Accurate I's and O's Heme: Leukocytosis Chronic baby aspirin use Coags within normal limits. Monitor CBC/CMP daily. Follow trends ID: Monitor for infection MSK: Lumbar L4 through S1 disc protrusion status post LUCIEN Holding calcium and vitamin D 3 Daily currently. Resume as clinically indicated PT evaluate and treat FEN: Hypokalemia Replace per ICU electrolyte protocol. See orders. Access - Utilize peripheral IV. We will place central line for hypertonic saline Prophylaxis - GI - Protonix - DVT - SCD/pharmacological prophylaxis when okayed with neurosurgery Critical Care: The total critical care time was 75 minutes. Time to perform other separately billable procedures was not included in the critical care time. Patient's physical examination closed consistent with brain . Dr. Garcia recommends observation for 24 hours. agreeable. DNR status due to living will and active. Possible withdrawal of care in a.m. Code Status Now DNR. Likely withdraw care Discussed Condition With Dr. Kebede/ED physician. Patient's . Care plan discussed and all questions answered Geovany Sorto MD September 04, 2016 06:15
== END 2016-07-25 22:50 | disposition expired | DRG 64 ==
LOC: NEPC 10:21 → NEDH 10:42 → N03A 12:26
PROVIDERS: ADMIT Internal Medicine Critical Care Medicine; ATTEND Internal Medicine Critical Care Medicine
PROC: 5A1935Z Respiratory Ventilation, Less than 24 Consecutive Hours (ICD-10-PCS; principal; 2016-07-25)
PROC: 02HV33Z Insertion of Infusion Device into Superior Vena Cava, Percutaneous Approach (ICD-10-PCS; 2016-07-25)
PROC: 0D9670Z Drainage of Stomach with Drainage Device, Via Natural or Artificial Opening (ICD-10-PCS; 2016-07-25)
DX: I60.6 Nontraumatic subarachnoid hemorrhage from other intracranial arteries (principal); J96.00 Acute respiratory failure, unspecified whether with hypoxia or hypercapnia; G91.9 Hydrocephalus, unspecified; R11.10 Vomiting, unspecified; F32.9 Major depressive disorder, single episode, unspecified; F41.9 Anxiety disorder, unspecified; E78.00 Pure hypercholesterolemia, unspecified; I10 Essential (primary) hypertension; D72.829 Elevated white blood cell count, unspecified; E87.6 Hypokalemia; R73.9 Hyperglycemia, unspecified; K21.0 Gastro-esophageal reflux disease with esophagitis; E03.9 Hypothyroidism, unspecified; E78.5 Hyperlipidemia, unspecified; M51.26 Other intervertebral disc displacement, lumbar region; G89.29 Other chronic pain; F17.200 Nicotine dependence, unspecified, uncomplicated; J30.9 Allergic rhinitis, unspecified; I34.1 Nonrheumatic mitral (valve) prolapse; Z66 Do not resuscitate; F41.8 Other specified anxiety disorders; Z86.73 Personal history of transient ischemic attack (TIA), and cerebral infarction without residual deficits; Z88.0 Allergy status to penicillin; Z91.048 Other nonmedicinal substance allergy status; Z79.891 Long term (current) use of opiate analgesic; Z79.899 Other long term (current) drug therapy; Z88.5 Allergy status to narcotic agent
CPT/HCPCS: 36556; 36600; 70450; 70496; 70498; 71010; 76937; 80307; 81001; 82435; 82550; 82565; 82805; 82947; 82948; 83930; 84132; 84295; 84484; 84520; 84702; 85025; 85384; 85610; 85730; 86850; 86900; 86901; 93005; 94002; 94640; 94664; J1953; J3480; J7030; Q9967